=== PATIENT | male | born 1940 | race Caucasian/White ===

== ENCOUNTER 2016-06-04 10:32 | Outpatient (CLI) | payer MEDICARE | END 2016-06-04 10:33 | disposition home or self-care (01) | DX: M17.11 Unilateral primary osteoarthritis, right knee (principal); M25.461 Effusion, right knee ==

== ENCOUNTER 2017-08-19 11:15 | Outpatient (CLI) | payer MEDICARE | END 2017-08-19 11:16 | disposition home or self-care (01) | LOC: RT.S 11:15 → SWC 11:15 → EDSTATUS 13:30 | PROVIDERS: ATTEND Nurse Practitioner Family | DX: R01.1 Cardiac murmur, unspecified (principal) | CPT/HCPCS: 93005 ==

== ENCOUNTER 2017-09-10 12:39 | Outpatient (CLI) | payer MEDICARE | END 2017-09-10 12:40 | disposition home or self-care (01) | LOC: DI 12:39 | PROVIDERS: ATTEND Nurse Practitioner Family | DX: R01.1 Cardiac murmur, unspecified (principal); I35.0 Nonrheumatic aortic (valve) stenosis; I51.7 Cardiomegaly | CPT/HCPCS: 93306 ==

== ENCOUNTER 2019-03-03 10:23 | Outpatient (CLI) | payer MEDICARE ==
[2019-03-03 17:10] LABS: BASOPHILS # (AUTO) 0.1 10^3/uL (0.0-0.1); BASOPHILS % (AUTO) 0.7 %; EOSINOPHILS # (AUTO) 0.1 10^3/uL (0.0-0.7); EOSINOPHILS % (AUTO) 1.6 %; HGB - HEMOGLOBIN 16.9 g/dL (14.0-18.0); LYMPHOCYTES % (AUTO) 15.6 %; MEAN CORPUSCULAR HEMOGLOBIN 32.6 pg (27.0-31.0); MEAN CORPUSCULAR HGB CONC 32.2 g/dL (32.0-36.0); MEAN CORPUSCULAR VOLUME 101.2 fL (80.0-94.0); MEAN PLATELET VOLUME 12.7 fL (7.4-11.4); MONOCYTES # (AUTO) 0.6 10^3/uL (0.0-1.0); MONOCYTES % (AUTO) 8.2 %; NEUTROPHILS # (AUTO) 4.9 10^3/uL (1.5-6.6); NEUTROPHILS % (AUTO) 73.5 %; PLT - PLATELET COUNT 118 10^3/uL (130-450); RED BLOOD COUNT 5.19 10^6/uL (4.70-6.10); RED CELL DISTRIBUTION WIDTH 13.9 % (12.0-15.0); WHITE BLOOD COUNT 6.7 x10^3/uL (4.8-10.8)
[2019-03-03 18:01] LABS: ALBUMIN 4.1 g/dL (3.2-5.5); ALBUMIN/GLOBULIN RATIO 1.4 (1.0-2.2); BILIRUBIN,TOTAL 0.8 mg/dL (0.2-1.0); CALCIUM 9.3 mg/dL (8.5-10.3); CREATININE 1.6 mg/dL (0.6-1.2); TOTAL PROTEIN 7.1 g/dL (6.7-8.2)
[2019-03-03 18:24] LABS: HB2 TOTAL 17.4 g/dL; HEMOGLOBIN A1C 0.68 g/dL; HEMOGLOBIN A1C % 5.7 % (4.6-6.2)
--- NOTE | 2019-03-04 15:36 | XRAY Report ---
Reason: ORTHOPNEA,AORTIC STENOSIS,HYPERTENSION Procedure Date: 03/03/2019 Accession Number: [id number] / [id number] Procedure: XRS - Chest 2 View X-Ray CPT Code: 42246 Final Report FULL RESULT: EXAM: CHEST RADIOGRAPHY EXAM DATE: 03/03/2019 10:33 AM. CLINICAL HISTORY: Orthopnea, aortic stenosis, hypertension. COMPARISON: None. TECHNIQUE: 2 views. FINDINGS: Lungs/Pleura: No focal infiltrates. There is some prominence of the upper lobe pulmonary vasculature. No edematous changes. Mediastinum: Heart and mediastinal contours are unremarkable. Other: None. IMPRESSION: 1. No focal infiltrates. 2. Some prominence of the upper lobe pulmonary vasculature without edematous change. RADIA
== END 2019-03-03 10:24 | disposition home or self-care (01) ==
LOC: DI.S 10:23
PROVIDERS: ATTEND Internal Medicine
DX: R06.01 Orthopnea (principal); I35.0 Nonrheumatic aortic (valve) stenosis; I10 Essential (primary) hypertension; R73.02 Impaired glucose tolerance (oral)
CPT/HCPCS: 36415; 71046; 80053; 83036; 85025

== ENCOUNTER 2019-03-15 10:55 | Outpatient (CLI) | payer MEDICARE | END 2019-03-15 10:56 | disposition home or self-care (01) | LOC: DI 10:55 | PROVIDERS: ATTEND Internal Medicine | DX: R06.01 Orthopnea (principal); I08.0 Rheumatic disorders of both mitral and aortic valves | CPT/HCPCS: 93306 ==

== ENCOUNTER 2020-06-09 10:15 | Outpatient (CLI) | payer MEDICARE ==
--- NOTE | 2020-06-09 12:08 | XRAY Report ---
PROCEDURE: Knee 3 View RT INDICATIONS: PAIN IN RT KNEE TECHNIQUE: 3 views of the right knee(s) were acquired. COMPARISON: X-ray right knee 06/04/2016 FINDINGS: Bones: No fractures or dislocations. No suspicious bony lesions. There is moderate lateral and mil d to moderate medial compartment narrowing, progressive bilaterally compared to prior exam. There are areas of subchondral sclerosis and periarticular osteophytes most prominent laterally. Mild to moder ate patellofemoral compartment narrowing is present. Soft tissues: Mild joint effusion. No suspicious soft tissue calcifications. IMPRESSION: Tricompartmental arthritis progressive compared to prior exam and most severe laterally . Reviewed by: Aida Wadsworth MD on 06/09/2020 12:06 PM PST Approved by: Aida Wadsworth MD on 06/09/2020 12:06 PM PST Station ID: [id number]
== END 2020-06-09 10:16 | disposition home or self-care (01) ==
LOC: DI.S 10:15
PROVIDERS: ATTEND Nurse Practitioner Family
DX: M25.561 Pain in right knee (principal); M17.11 Unilateral primary osteoarthritis, right knee

== ENCOUNTER 2021-10-31 09:53 | Outpatient (CLI) | payer MEDICARE ==
[2021-10-31 11:17] VITALS: BP 114/73
--- NOTE | 2021-10-31 11:17 | SLEEP CARE CONSULTATION ---
Information from patient questionnaire entered by Dory Taveras MA. I have reviewed and concur with the information entered by Dory Taveras MA. This document represents the service I personally performed and the decisions made by , Kaitlynn Kerr ARNP. History of Present Illness Service Date and Time: 10/31/2021 0953 Reason for Visit: New patient (ONSET 08/29/2021, NO PRIOR SS, ), Other (BATHROOM - CANT GO BACK TO SLEEP. ) Accompanied by: Grandson Chief Complaint: reports: Snoring Date of Onset: 2 MONTHS Usual bedtime: 800 PM Time it takes to fall asleep: NOT LONG Snores at night: Yes Observed to quit breathing while asleep: No Sleeps alone due to snoring: No Number of times waking at night: 3 Reasons for waking at night: reports: Bathroom. denies: Choking, Snoring, Gasping for air Toss, Turn, or Twitch while sleeping: No Recalls having dreams: No (not much anymore) Usually gets out of bed at: 0600 Feels refreshed in the morning: Yes Morning headache: No Sleepy or fatigued during the day: No Ever fallen asleep while driving: No Takes day naps: Yes (1-2 times a week, 1 hour on avg) Dreams during day naps: No Prior sleep studies: No Additional HPI information: I had the pleasure of seeing EMERSON MARIANO today regarding the possibility of him having a sleep disorder. His current complaint is snoring. He states he does not sleep well and has heard about the CPAP making a difference for them with their sleep. 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 He had 4 heart stents placed in August 2021. He still does not feel he gets good sleep. He is able to go to sleep quickly about 8 PM. He gets up for bathroom about midnight and then cannot go back to sleep. But lately this has improved and he is able to go to sleep. He states he takes melatonin at night to help him sleep. He has been told that his tells him he snores. - Parasomnia Symptoms Ever been unable to move upon waking from sleep: No Walks in sleep: No Talks in sleep: No Ever acted out dreams in sleep: No Ever felt weak in the knees when startled or emotional: No Bothered by creepy, crawly, restless sensations in legs: No Problems with memory or concentration: No Subjective Initial [place] Sleepiness Scale score: 3 (10/31/2021) Past Medical History Past Medical History: reports: Coronary Heart Disease (4 stents placed in August 2021; TAVR 2.5 yrs ago), Arrythmia Social History The patient's occupation is a RE. Patient is and lives in [place]. Have you smoked in the past 12 months: No Cigarettes per day (20/pack): 3 (pipes) Years of smokin Quit date: 1973 Smoking Pack Years: 0.5 Alcohol use: Yes Alcohol amount and frequency: occasional, socially Caffeine use: Yes Caffeine amount and frequency: 1 tea in morning Family History Family history of sleep disordered breathing: No Allergies and Home Medications Drug allergies reviewed: Yes (NKDA) Home medication list reviewed: Yes Allergy and home medication list: Medications: Eliquis Clopidogrel Rosuvastatin Aspirin Tylenol Lisinopril Metoprolol succinate Review of Systems Weight loss over past 5 years: 10 Cardiovascular: reports: irregular heart rate or pulse Urinary: reports: frequency Neurological: reports: headaches Psychiatric: reports: anxiety Ear/Nose/Throat: reports: wisdom teeth removed. denies: tonsillectomy Endocrine: reports: increased urination Physical Exam Vital signs obtained and entered by: CARL MACE Blood Pressure: 114/73 (RESP 18, PULSE 61, LEFT) Cuff size: wrist Heart Rate: 62 O2 Saturation: 97 (PAPER MASK) Height: 5 ft 8 in Weight: 184 lb (CLOTHES) Body Mass Index: 27.9 BMI Classification: Overweight Neck circumference: 16 (INCHES) Mouth and throat: normal Soft palate: normal Hard palate: normal Uvula: long, edematous Uvula visualization: 50% Mallampati Class II Tongue: normal in size Tonsils: small Neck: normal w/o lymphadenopathy or thyromegaly Heart: regular rate and rhythm Lungs: clear bilaterally Impression and Plan 1. Suspected Obstructive Sleep Apnea-Hypopnea Syndrome, as suggested by a history of loud and irregular snoring, frequent awakening during the night and has coronary heart disease with heart arrhythmia. Narrow oropharynx and obesity are common predisposing factors for obstructive sleep apnea-hypopnea syndrome. I recommend proceeding to polysomnography to confirm the diagnosis and to assess severity. If the patient has significant sleep disordered breathing, a manual CPAP titration study will also be performed to find the optimal treatment pressure. I informed the patient of what the sleep studies involve and after some discussion, obtained agreement to proceed. The pathophysiology of obstructive sleep apnea-hypopnea syndrome was discussed with the patient and health risks of cardiovascular and cerebrovascular disease if not treated. Risks of drowsy driving discussed in detail and patient advised to avoid long distance driving and to box puller at the first sign of drowsiness. Patient agreed to plan. * Schedule polysomnography * Avoid long distance driving or driving when feeling sleepy. * Avoid alcohol, sedative and muscle relaxant around bedtime. * Attempt to lose weight. * Review instructions provided by trained office staff on how to prepare for the sleep study. * Return for follow-up after sleep study completed. Counseling Topics: Weight loss health impact Visit Type: In Office Patient Location: [facility] Time Spent with Patient (minutes): 33 Provider Statement: I spent 100% of the Face to Face Visit with the patient with greater than 50% spent counseling the patient and coordination of care.
== END 2021-10-31 09:54 | disposition home or self-care (01) ==
LOC: SC 09:53
PROVIDERS: ATTEND Nurse Practitioner Family
DX: G47.8 Other sleep disorders (principal); R06.83 Snoring; I49.9 Cardiac arrhythmia, unspecified; E66.3 Overweight; Z68.27 Body mass index [BMI] 27.0-27.9, adult; Z87.891 Personal history of nicotine dependence
CPT/HCPCS: 99203; G0463; 99212